=== PATIENT | female | born 1985 | race African-American/Black ===

== ENCOUNTER 2020-05-18 11:00 | Emergency (ER) | payer MEDICAID ==
[~2020-05-18] VITALS: Ht 162.6 cm; Wt 54.0 kg
[2020-05-18] MEDS ORDERED: SODIUM CHLORIDE 0.9% 1,000 ML IV ONE (11:30)
[2020-05-18 11:42] LABS: EOSINOPHILS % 3.8 % (0.0-5.0); HEMATOCRIT. 37.6 % (36.0-48.0); LYMPHOCYTES % 43.8 % (20.0-50.0); MEAN CORPUSCULAR HEMOGLOBIN 29.1 pg (28.0-32.0); MEAN CORPUSCULAR VOLUME 90.7 fL (81.0-99.0); MEAN PLATELET VOLUME 10.3 fl (7.4-10.4); MONOCYTES % 14.2 % (2.0-8.0); NEUTROPHILS % 37.2 % (40.0-76.0); PLATELET 206 x1000/uL (130-400); RED BLOOD CELL COUNT 4.14 mill/uL (4.2-5.4); RED CELL DISTRIBUTION WIDTH 13.5 % (11.6-14.6)
[2020-05-18 11:57] LABS: CHLORIDE 103 mEq/L (98-107)
[2020-05-18 12:03] LABS: ETHANOL BLOOD < 10 mg/dL
[2020-05-18 12:12] LABS: *BARBITURATES SCREEN URINE NEGATIVE (NEGATIVE)
[2020-05-18 12:14] LABS: CANNABINOID URINE SCREEN NEGATIVE (NEGATIVE); METHADONE URINE SCREEN NEGATIVE (NEGATIVE)
[2020-05-18 12:15] LABS: OPIATES URINE SCREEN NEGATIVE (NEGATIVE)
[2020-05-18 12:17] LABS: CLARITY URINE CLEAR (CLEAR); COLOR URINE YELLOW (YELLOW); KETONES URINE NEGATIVE (NEGATIVE); LEUKOCYTE ESTERASE URINE NEGATIVE (NEGATIVE); NITRITE URINE NEGATIVE (NEGATIVE); OCCULT BLOOD URINE TRACE (NEGATIVE); PROTEIN URINE 2+ (NEGATIVE); UROBILINOGEN URINE 0.2 E.U./dL (0.2-1.0)
[2020-05-18 12:18] LABS: PHENCYCLIDINE URINE SCREEN NEGATIVE (NEGATIVE)
[2020-05-18 12:20] LABS: *COCAINE SCREEN URINE NEGATIVE (NEGATIVE)
[2020-05-18 12:22] LABS: *AMPHETAMINES SCREEN URINE PRESUMTIVE POSITIVE (NEGATIVE); *BENZODIAZEPINES SCREEN URINE PRESUMTIVE POSITIVE (NEGATIVE)
[2020-05-18] MEDS ORDERED: DEXTROSE 50% WATER 50ML SYRINGE IV ONE (12:30)
[2020-05-18 16:24] VITALS: BP 122/76
== END 2020-05-18 16:30 | disposition home or self-care (01) ==
LOC: EDBD 11:00 → ER 11:00
DX: T16.2XXA Foreign body in left ear, initial encounter (principal); G92 Toxic encephalopathy; E16.2 Hypoglycemia, unspecified; Z98.890 Other specified postprocedural states; I49.9 Cardiac arrhythmia, unspecified; X58.XXXA Exposure to other specified factors, initial encounter; Y93.89 Activity, other specified; Y92.89 Other specified places as the place of occurrence of the external cause; Y99.8 Other external cause status
CPT/HCPCS: 36415; 70450; 71045; 80053; 80305; 80307; 80320; 80329; 81003; 81025; 82140; 82962; 85025; 93005; 96374; 99285; J7030; G0480

== ENCOUNTER 2020-08-13 14:51 | Emergency (ER) | payer MEDICAID ==
[~2020-08-13] VITALS: Ht 177.8 cm; Wt 67.0 kg
[2020-08-13 15:08] VITALS: BP 127/86
[2020-08-13 16:46] LABS: BASOPHILS % 0.9 % (0.0-2.0); EOSINOPHILS % 6.1 % (0.0-5.0); HEMOGLOBIN. 11.6 g/dL (12.0-16.0); LYMPHOCYTES % 41.7 % (20.0-50.0); MEAN CORPUSCULAR HEMOGLOBIN 29.2 pg (28.0-32.0); MEAN CORPUSCULAR VOLUME 88.4 fL (81.0-99.0); MEAN PLATELET VOLUME 10.7 fl (7.4-10.4); NEUTROPHILS % 40.3 % (40.0-76.0); PLATELET 190 x1000/uL (130-400); RED BLOOD CELL COUNT 3.96 mill/uL (4.2-5.4); RED CELL DISTRIBUTION WIDTH 13.3 % (11.6-14.6)
[2020-08-13 16:50] LABS: CHLORIDE 110 mEq/L (98-107)
[2020-08-13 16:55] LABS: ETHANOL BLOOD < 10 mg/dL
[2020-08-13 17:05] LABS: HCG SCREEN NEGATIVE
[2020-08-13 17:44] LABS: CLARITY URINE CLEAR (CLEAR); COLOR URINE YELLOW (YELLOW); KETONES URINE TRACE (NEGATIVE); LEUKOCYTE ESTERASE URINE NEGATIVE (NEGATIVE); NITRITE URINE NEGATIVE (NEGATIVE); OCCULT BLOOD URINE NEGATIVE (NEGATIVE); PROTEIN URINE NEGATIVE (NEGATIVE); SPECIFIC GRAVITY URINE 1.024 (1.005-1.030); UROBILINOGEN URINE 0.2 E.U./dL (0.2-1.0)
[2020-08-13 17:58] LABS: *BARBITURATES SCREEN URINE NEGATIVE (NEGATIVE); *BENZODIAZEPINES SCREEN URINE NEGATIVE (NEGATIVE); *COCAINE SCREEN URINE NEGATIVE (NEGATIVE); METHADONE URINE SCREEN NEGATIVE (NEGATIVE); OPIATES URINE SCREEN NEGATIVE (NEGATIVE)
[2020-08-13 17:59] LABS: PHENCYCLIDINE URINE SCREEN NEGATIVE (NEGATIVE)
[2020-08-13 18:10] LABS: *AMPHETAMINES SCREEN URINE PRESUMTIVE POSITIVE (NEGATIVE); CANNABINOID URINE SCREEN PRESUMTIVE POSITIVE (NEGATIVE)
[2020-08-13] MEDS ORDERED: CEFTRIAXONE SODIUM 250 MG/VIAL IM ONE (18:30)
[2020-08-13] MEDS ORDERED: AZITHROMYCIN 500 MG TABLET PO ONE (18:30)
== END 2020-08-13 19:19 | disposition home or self-care (01) ==
LOC: ER 14:51
DX: M79.672 Pain in left foot (principal); M79.671 Pain in right foot; F19.10 Other psychoactive substance abuse, uncomplicated; R44.0 Auditory hallucinations; J45.909 Unspecified asthma, uncomplicated; Z59.0 Homelessness
CPT/HCPCS: 36415; 73630; 80053; 80305; 80307; 80320; 80329; 81003; 84703; 85025; 96372; 99284; J0696; G0480